=== PATIENT | male | born 1970 | race Two or more races ===

== ENCOUNTER 2021-04-18 19:08 | Emergency (ER) | payer OTHER ==
[~2021-04-18] VITALS: Ht 177.8 cm; Wt 90.7 kg
[2021-04-18] MEDS ORDERED: MULTIPLE VITAM1 EAC2 (19:21)
[2021-04-18] MEDS ORDERED: DICLOFENAC POTA50 MG PO (22:52)
[2021-04-18] MEDS ORDERED: ORPHENADRINE C100 MG PO (22:52)
== END 2021-04-18 23:04 ==
LOC: ER 19:08
DX: S20.212A Contusion of left front wall of thorax, initial encounter (principal); V00.141A Fall from scooter (nonmotorized), initial encounter; Y92.415 Exit ramp or entrance ramp of street or highway as the place of occurrence of the external cause